=== PATIENT | female | born 1955 | race Caucasian/White ===

== ENCOUNTER → 2016-10-19 | Outpatient (REF) | payer BC | LOC: M LAB REF 12:58 | PROVIDERS: ATTEND Advanced Practice Midwife | DX: Z12.4 Encounter for screening for malignant neoplasm of cervix (principal) ==

== ENCOUNTER → 2017-06-27 | Outpatient (CLI) | payer OTHER ==
--- NOTE | 2017-06-27 10:36 | REPMRS ---
Patient History The patient states she had a clinical breast exam in February 2017. Patient is postmenopausal and had first child at age 36. Family history of colorectal cancer in brother at age 47. Digital Mammo Screening Bilat: June 27, 2017 - Exam #: [id number] Bilateral CC and MLO view(s) were taken. Technologist: Salina Santos, Technologist Prior study comparison: February 02, 2016, bilateral digital mammo screening bilat performed at [facility]. July 15, 2014, bilateral digital mammo screening bilat performed at [facility]. July 09, 2013, bilateral digital mammo screening bilat performed at [facility]. FINDINGS: There are scattered fibroglandular densities. There has been no change in the appearance of the mammogram from the prior studies. There is a mild amount of scattered fibroglandular density which is fairly symmetric. There is no interval development of dominant mass, architectural distortion, or clustered microcalcification suggestive of malignancy. ASSESSMENT: BI-RADS/ACR category 1 mammogram. Negative. Recommendation Routine screening mammogram in 1 year (for women over age 40). This mammogram was interpreted with the aid of an FDA-approved computer-aided dectection system. Electronically Signed By: Paul Howard MD 06/27/17 [id number]
== END ==
LOC: M RAD 09:32
PROVIDERS: ATTEND Family Medicine
DX: Z12.31 Encounter for screening mammogram for malignant neoplasm of breast (principal)

== ENCOUNTER → 2018-07-10 | Outpatient (CLI) | payer OTHER | LOC: M RAD 08:45 | DX: Z12.31 Encounter for screening mammogram for malignant neoplasm of breast (principal); N60.31 Fibrosclerosis of right breast; N60.32 Fibrosclerosis of left breast ==

== ENCOUNTER → 2020-06-12 | Outpatient (CLI) | payer MEDICARE ==
--- NOTE | 2020-07-14 14:53 | REP ---
DIGITAL DIAGNOSTIC UNILATERAL LEFT BREAST MAMMOGRAPHY WITH CAD AND 3D TOMOGRAPHY HISTORY: Patient requests second opinion. Abnormal mammogram at outside facility. Report was delayed pending retrieval of outside prior studies of which most recently dated 05/22/2020 and 04/28/2020 from [facility] in [place], [place]. Also reviewed are comparison prior studies from this facility dated 07/10/2018, 06/27/2017, and 02/02/2016. Report of the 05/22/2020 study was BI- RADS Category 4 due to circumscribed nodules in the left breast. FINDINGS: Scattered fibroglandular elements are noted in the left breast as before. The Volpara breast parenchymal density pattern is B. There is a well-circumscribed cluster of nodules in the medial aspect of the left breast, which is described on the 05/22/2020 and 04/28/2020 prior mammography. This is entirely unchanged from prior mammography dating back to 02/02/2016 and is felt to be benign. There is no neodensity, architectural distortion, or microcalcific grouping. No worrisome skin changes seen. IMPRESSION: Stable BI-RADS Category 2 benign findings. Repeat annual screening mammography can be resumed. Patient letter M1. This study was interpreted with the aid of an FDA approved computer-aided detection system. The patients Tyrer-Cuzick breast parenchymal lifetime risk assessment is 8.2%. MTDD
== END ==
LOC: M WHC 10:34
PROVIDERS: ATTEND Nurse Practitioner Family
DX: R92.8 Other abnormal and inconclusive findings on diagnostic imaging of breast (principal); N63.20 Unspecified lump in the left breast, unspecified quadrant
CPT/HCPCS: 77065; G0279

== ENCOUNTER → 2021-08-13 | Outpatient (CLI) | payer MEDICARE ==
--- NOTE | 2021-08-13 16:22 | REPMRS ---
Patient History The patient states she had a clinical breast exam in April 2021. Patient is postmenopausal and had first child at age 36. Family history of colorectal cancer at age 47 in brother. Moderna vaccine 11/27/20 left arm. 12/25/20 left arm. Patient states no breast complaints today. Patient has signed MRS History Sheet. Digital Woman Screen Mammo: August 13, 2021 - Exam #: [id number] Bilateral CC and MLO view(s) were taken. Technologist: RT Kerrie Prior study comparison: June 12, 2020, left breast diagnostic unilateral mammo performed at [facility]. April 28, 2020, bilateral digital woman screen mammo, performed at [facility]. FINDINGS: There are scattered fibroglandular densities. Screening. Digital screening (2D) mammography was performed bilaterally in the CC and MLO projections. Additionally, breast tomosynthesis (3D mammography) was performed bilaterally in the CC and MLO projections. Todays exam was compared to the prior exam/exams. By history, the patient has no complaints of a palpable breast abnormality or other significant breast complaints. The Volpara volumetric breast density category is B, there are scattered areas of fibroglandular densities. The breasts are unchanged in size and shape. There are no say-soft tissue densities or spiculated masses. There is no internal architectural distortion. There are no suspicious say-calcific clusters. Skin thickening or nipple retraction is not present. IMPRESSION: BI-RADS Category 2- Benign Findings. There is no evidence of malignant alteration of the breasts. Followup examination recommended in one year. The lifetime Tyrer-Cuzick score is 7.8% This mammogram was read with the assistance of [employer],an FDA approved computer aided detection system for mammography. Negative x-ray reports should not delay surgical consultation if a dominant or clinically suspicious mass is present. Not all breast cancers can be identified by mammography. Therefore, we recommend that you continue to perform regular breast self-examination and physical examination and then promptly contact your physician of any concerns or changes. Adenosis and dense breasts may obscure an underlying neoplasm. No significant changes when compared with prior studies. Assessment: BI-RADS/ACR category 2 mammogram. Benign Findings. Recommendation Routine screening mammogram of both breasts in 1 year. Electronically Signed By: Nick Love MD 08/13/21 [id number]
== END ==
LOC: M WHC 11:35
PROVIDERS: ATTEND Nurse Practitioner Family
DX: Z12.31 Encounter for screening mammogram for malignant neoplasm of breast (principal)

== ENCOUNTER → 2022-08-15 | Outpatient (CLI) | payer MEDICARE | LOC: M WHC 09:17 | PROVIDERS: ATTEND Family Medicine | DX: Z12.31 Encounter for screening mammogram for malignant neoplasm of breast (principal) ==

== ENCOUNTER → 2023-08-17 | Outpatient (CLI) | payer MEDICARE | LOC: M WHC 12:39 | PROVIDERS: ATTEND Family Medicine | DX: Z12.31 Encounter for screening mammogram for malignant neoplasm of breast (principal); M85.89 Other specified disorders of bone density and structure, multiple sites; R92.323 Mammographic fibroglandular density, bilateral breasts ==

== ENCOUNTER → 2024-01-03 | Outpatient (REF) | payer MEDICARE | LOC: M SFHCWAGY 16:51 → M LAB REF 16:51 | PROVIDERS: ATTEND Nurse Practitioner Family | DX: R39.14 Feeling of incomplete bladder emptying (principal); N73.9 Female pelvic inflammatory disease, unspecified ==

== ENCOUNTER → 2024-08-20 | Outpatient (CLI) | payer MEDICARE | LOC: M WHC 11:00 | PROVIDERS: ATTEND Nurse Practitioner Family | DX: Z12.31 Encounter for screening mammogram for malignant neoplasm of breast (principal) ==